=== PATIENT | female | born 1960 | race Caucasian/White ===

== ENCOUNTER 2025-01-16 11:54 | Outpatient (CLI) | payer MEDICARE, SELFPAY ==
--- NOTE | 2025-01-16 13:00 | NEURO_ITS ---
Impression: # Diabetic complains of numbness of lower extremities. ? # Mild axonal Neuropathy involving lower extremities. ? # Needle/ EMG exam mildly neurogenic distally. Nerve Conduction Studies ?Stim Site NR Peak (ms) P-T Amp (?V) Site1 Site2 Delta-P (ms) Dist (cm) González (m/s) Left Sup Fibular Anti Sensory (Ant Lat Mall) 14 cm ? 3.6 11.9 14 cm Ant Lat Mall 3.6 16.0 44 Right Sup Fibular Anti Sensory (Ant Lat Mall) 14 cm ? 3.9 10.0 14 cm Ant Lat Mall 3.9 16.0 41 Left Sural Anti Sensory (Lat Mall) Calf ? 4.0 4.4 Calf Lat Mall 4.0 16.0 40 Right Sural Anti Sensory (Lat Mall) Calf ? 4.0 3.2 Calf Lat Mall 4.0 16.0 40 ?Stim Site NR Onset (ms) O-P Amp (mV) Site1 Site2 Delta-0 (ms) Dist (cm) González (m/s) Left Peroneal Motor (Vastus Med) Ankle ? 5.6 5.0 Popit Ankle 10.1 41.0 41 Popit ? 15.7 2.8 Right Peroneal Motor (Vastus Med) Ankle ? 4.1 5.4 Popit Ankle 9.1 39.0 43 Popit ? 13.2 4.1 Left Tibial Motor (Abd Gordon Brev) Ankle ? 5.3 3.2 Knee Ankle 9.5 42.0 44 Knee ? 14.8 1.9 Right Tibial Motor (Abd Gordon Brev) Ankle ? 4.1 5.9 Knee Ankle 10.0 42.0 42 Knee ? 14.1 4.2 F Wave Studies ?NR F-Lat (ms) L-R F-Lat (ms) Left Peroneal (Mrkrs) (EDB) ? 58.51 3.68 Right Peroneal (Mrkrs) (EDB) ? 54.83 3.68 Left Tibial (Mrkrs) (Abd Hallucis) ? 59.58 8.01 Right Tibial (Mrkrs) (Abd Hallucis) ? 51.56 8.01 Electromyography ?Side Muscle Nerve Root Ins Act Fibs Amp Dur Recrt Comment Right AntTibialis Dp Br Fibular L4-5 Nml Nml Nml Nml Nml Left AntTibialis Dp Br Fibular L4-5 Nml Nml Nml Nml Nml Right Ext Dig Brev Dp Br Fibular L5, S1 Nml Nml Nml >12ms +1 Left Ext Dig Brev Dp Br Fibular L5, S1 Nml Nml Nml >12ms +1 Right Fibularis Long Sup Br Fibular L5-S1 Nml Nml Nml Nml Nml Left Fibularis Long Sup Br Fibular L5-S1 Nml Nml Nml Nml Nml Right Flex Dig Long Tibial L5-S2 Nml Nml Nml >12ms +1 Left Flex Dig Long Tibial L5-S2 Nml Nml Nml >12ms +1 Right Gastroc Tibial S1-2 Nml Nml Nml Nml Nml Left Gastroc Tibial S1-2 Nml Nml Nml Nml Nml Right QuadratusFem QuadFemoris L4-5, S1 Nml Nml Nml Nml Nml Left QuadratusFem QuadFemoris L4-5, S1 Nml Nml Nml Nml Nml
== END 2025-01-16 11:55 | disposition home or self-care (01) ==
LOC: ANHNEURO 12:02
PROVIDERS: Visit Provider Family Medicine
DX: G57.83 Other specified mononeuropathies of bilateral lower limbs (principal); E11.9 Type 2 diabetes mellitus without complications
CPT/HCPCS: 95886; 95910